=== PATIENT | female | born 1960 | race Caucasian/White ===

== ENCOUNTER → 2018-03-09 | Outpatient (CLI) | payer BC ==
[~2018-03-09] MED LIST: ALBU90OI; CLIM.025TP TOP; ESCI10 PO; IBUHYD PO; LEVSOD75 PO; NAPR550 PO; Nitrostat0.4 MG SL
== END | disposition home or self-care (01) ==
LOC: PLD 08:52 → LAB SHORT 08:52
DX: D22.5 Melanocytic nevi of trunk (principal)
CPT/HCPCS: 88305

== ENCOUNTER → 2018-05-12 | Outpatient (CLI) | payer BC ==
[2018-05-14 15:07] LABS: HPV 16 Negative (Negative); HPV 18 Negative (Negative); HPV OTHER HR TYPES Negative (Negative)
== END | disposition home or self-care (01) ==
LOC: LAB 14:08 → LAB SHORT 14:08
PROVIDERS: Obstetrics & Gynecology Gynecology
DX: Z12.72 Encounter for screening for malignant neoplasm of vagina (principal)
CPT/HCPCS: 87624; G0123

== ENCOUNTER → 2019-03-31 | Outpatient (CLI) | payer BC | END | disposition home or self-care (01) | LOC: PLD 11:42 → LAB SHORT 11:42 | DX: D48.5 Neoplasm of uncertain behavior of skin (principal) | CPT/HCPCS: 88305 ==

== ENCOUNTER → 2019-05-11 | Outpatient (CLI) | payer BC ==
[2019-05-11 18:24] LABS: Protein, Urine Random <5.0 mg/dL (0.0-11.9)
== END | disposition home or self-care (01) ==
LOC: LAB SHORT 15:08 → LAB 15:08
PROVIDERS: Internal Medicine
DX: R79.89 Other specified abnormal findings of blood chemistry (principal)
CPT/HCPCS: 82570; 84156

== ENCOUNTER 2020-07-24 07:03 | Observation (INO) | payer BC ==
[~2020-07-24] VITALS: Ht 160 cm; Wt 85.0 kg
[~2020-07-24 07:03] MED LIST changes: +ALBU90OI INH; +ALPR.5 PO; +BECL25NI INH; +CLIMARA1 EACH TOP; +DULO30 PO; +HYDR1TAB94 PO; +IBUP200 PO; +PREG75 PO
--- NOTE | 2020-07-24 07:31 | NUR ---
History, Chart, Medications and Allergies reviewed before start of procedure. Patient States Post-Procedure ride home has been arranged. Pre-Op teaching done. Pt verbalizes understanding.
--- NOTE | 2020-07-24 12:09 | NUR ---
PT ARRIVED TO UNIT FROM PACU. PLACED ON 1L OXYGEN WHILE RESTING. TITRATING OFF SHE AWAKES. LAP SITES CDI. ALLISON DRAIN PATENT AND DRAINING. PT CALLED SPOUSE TO LET HIM KNOW TO BRING BELONGINGS. PT TOLD SHE WAS GOING TO FOR AN ERCP. BED ASSIGNMENT GIVEN ESS 37. PROCESSING COBRA TRANSFER AT THIS TIME. PT TOLERATING SMALL SIPS OF WATER CURRENTLY. REPORTS PAIN TOLERABLE AND DENIES NAUSEA.
--- NOTE | 2020-07-24 13:08 | NUR ---
TRANSFER TRANSFER [facility]IA [facility] TO [place].
== END 2020-07-24 13:09 | disposition short-term general hospital (02) ==
LOC: ORSCMMR 07:03 → ORD 08:30 → SURS 10:15 → ORSCMMR 10:15 → SURS 11:00
PROVIDERS: ADMIT Surgery
DX: K80.65 Calculus of gallbladder and bile duct with chronic cholecystitis with obstruction (principal); E03.9 Hypothyroidism, unspecified; J45.909 Unspecified asthma, uncomplicated
CPT/HCPCS: 74300; 88304; A9270; C1729; J0694; J1100; J1610; J2250; J2370; J2405; J2704; J2710; J2765; J3010; J7120

== ENCOUNTER 2020-08-05 19:41 | Observation (INO) | payer BC ==
[~2020-08-05] VITALS: Ht 160 cm; Wt 88.3 kg
[2020-08-05 20:23] LABS: BASOPHILS ABSOLUTE AUTO 0.04 K/mm3 (0.00-0.23); BASOPHILS PERCENT AUTO 0 % (0-2); EOSINOPHILS PERCENT AUTO 2 % (0-6); Hematocrit 43.4 % (33.0-51.0); Hemoglobin 14.7 g/dL (11.5-16.0); IMMATURE GRAN ABSOLUTE AUTO 0.04 K/mm3 (0.00-0.10); IMMATURE GRAN PERCENT AUTO 0 % (0-1); LYMPHOCYTES ABSOLUTE AUTO 1.89 K/mm3 (0.84-5.20); LYMPHOCYTES PERCENT AUTO 14 % (21-46); MONOCYTES ABSOLUTE AUTO 0.93 K/mm3 (0.16-1.47); MONOCYTES PERCENT AUTO 7 % (4-13); Mean Corpuscular HGB 28.9 pg (26.0-34.0); Mean Corpuscular HGB Conc 33.9 g/dL (31.5-36.5); Mean Corpuscular Volume 85 fL (80-100); Mean Platelet Volume 10.8 fL (9.1-12.4); NEUTROPHILS ABSOLUTE AUTO 10.68 K/mm3 (1.96-9.15); NEUTROPHILS PERCENT AUTO 78 % (41-73); Platelet Count 289 K/mm3 (150-400); RDW Coefficient Variation 13.1 % (11.7-14.2); RDW Standard Deviation 40.9 fL (35.1-46.3); Red Blood Cell Count 5.09 M/mm3 (3.80-5.20); White Blood Cell Count 13.78 K/mm3 (4.00-11.30)
[2020-08-05 20:40] LABS: Alanine Aminotransfer (ALT/SGP 38 U/L (12-78); Albumin, Blood 3.5 g/dL (3.4-5.0); Albumin/Globulin Ratio 0.9 (0.8-1.8); Alk Phos 89 U/L (50-136); Anion Gap 5 mmol/L (6-16); Aspartate Aminotrans (AST/SGOT 26 U/L (12-37); Bilirubin, Total 0.4 mg/dL (0.1-1.0); Blood Urea Nitrogen 11 mg/dL (8-24); CO2, Blood 27 mmol/L (21-32); Calcium, Blood 8.8 mg/dL (8.5-10.1); Chloride, Blood 107 mmol/L (98-108); Creatinine, Blood 1.22 mg/dL (0.40-1.00); Globulin, Blood 3.8 g/dL (2.2-4.0); Glomerular Filtration Rate 47 (60-); Glucose, Blood 114 mg/dL (70-99); Potassium, Blood 4.5 mmol/L (3.5-5.5); Sodium, Blood 139 mmol/L (136-145); Total Protein, Blood 7.3 g/dL (6.4-8.2)
[2020-08-05] MEDS ORDERED: OXYC5 PO (21:02)
[2020-08-05 23:12] LABS: Source, Urine Clean Catch
[2020-08-05 23:14] LABS: Bilirubin, Urine Neg (Neg); Blood, Urine Neg (Neg); Glucose Qualitative, Urine Neg (Neg); Ketones, Urine Neg (Neg); Leukocyte Esterase, Urine Neg (Neg); Nitrite, Urine Neg (Neg); Protein, Urine Neg (Neg); Urobilinogen, Urine NORM (Normal)
[2020-08-05 23:19] LABS: Appearance, Urine Clear (Clear); Color, Urine Pale Yellow (P-Yellow)
[2020-08-06 00:06] LABS: Troponin I <0.015 ng/mL (0.000-0.040)
[2020-08-06] MEDS ORDERED: ESTRADIOL (TWI1 EAC2 TD (01:46)
[2020-08-06] MEDS ORDERED: LEVSOD75 PO (01:48)
[2020-08-06] MEDS ORDERED: LEVSOD112 PO (01:49)
--- NOTE | 2020-08-06 05:01 | NUR ---
SHIFT SUMMARY PT AOX4, VSS. PT AFEBRILE ON ARRIVAL FROM ED. GUARDS ABD, PAINFUL WITH MOVEMENT AND DEEP BREATHING. ZOSYN INFUSION COMPLETED PER ORDER, LR INFUSING AT 100 MLS/HR. DILAUDID 1 MG IV ADMIN FOR PAIN. SMALL AMOUNT OF PINK DRAINAGE IN ALLISON DRAIN PRESENT ON ARRIVAL FROM ED. PT STATED NOT HAVING TO DRAIN SINCE PRIOR AM. UP TO BATHROOM WITH STANDBY ASSIST.
--- NOTE | 2020-08-06 15:45 | NUR ---
Patient is lying in bed and alert. Patient's spouse, Thierry is bedside. Patient tells me about the events that led to her hospitalization, about her family and about her [employer]. I provide therapeutic listening and prayer. Patient and Thierry voice their appreciation for the prayer.
--- NOTE | 2020-08-06 17:14 | NUR ---
PT AOX4 AND COOPERATIVE OF CARE. DR AMIN REMOVED PT'S PINROSE DRAIN AND PT STATES HER INCREASED PAIN HAS IMPROVED. PT IS TREATED FOR PAIN PER EMAR. PT DID HAVE A FEVER OF 100.[address] AMIN WAS NOTIFIED AND ADDED MEDICATION TO EMAR. PT IS A STANDBY TO RESTROOM SHE NEEDS SOME MINIMAL SUPPORT. CALL LIGHT IS WITHIN REACH WILL CONTINUE TO MONITOR.
[2020-08-07 04:35] LABS: BASOPHILS ABSOLUTE AUTO 0.04 K/mm3 (0.00-0.23); BASOPHILS PERCENT AUTO 0 % (0-2); EOSINOPHILS ABSOLUTE AUTO 0.14 K/mm3 (0.00-0.68); EOSINOPHILS PERCENT AUTO 1 % (0-6); Hematocrit 42.1 % (33.0-51.0); Hemoglobin 13.7 g/dL (11.5-16.0); IMMATURE GRAN ABSOLUTE AUTO 0.06 K/mm3 (0.00-0.10); IMMATURE GRAN PERCENT AUTO 0 % (0-1); LYMPHOCYTES PERCENT AUTO 9 % (21-46); MONOCYTES ABSOLUTE AUTO 1.12 K/mm3 (0.16-1.47); MONOCYTES PERCENT AUTO 6 % (4-13); Mean Corpuscular HGB 28.5 pg (26.0-34.0); Mean Corpuscular HGB Conc 32.5 g/dL (31.5-36.5); Mean Corpuscular Volume 88 fL (80-100); Mean Platelet Volume 10.8 fL (9.1-12.4); NEUTROPHILS ABSOLUTE AUTO 14.84 K/mm3 (1.96-9.15); NEUTROPHILS PERCENT AUTO 83 % (41-73); Platelet Count 214 K/mm3 (150-400); RDW Coefficient Variation 13.3 % (11.7-14.2); RDW Standard Deviation 43.3 fL (35.1-46.3); Red Blood Cell Count 4.81 M/mm3 (3.80-5.20)
[2020-08-07 04:57] LABS: Albumin, Blood 2.7 g/dL (3.4-5.0); Albumin/Globulin Ratio 0.8 (0.8-1.8); Bilirubin, Total 0.7 mg/dL (0.1-1.0); Bun/Creatinine Ratio 6.6 (12.0-20.0); Calcium, Blood 8.1 mg/dL (8.5-10.1); Creatinine, Blood 1.37 mg/dL (0.40-1.00); Globulin, Blood 3.6 g/dL (2.2-4.0); Potassium, Blood 4.3 mmol/L (3.5-5.5); Total Protein, Blood 6.3 g/dL (6.4-8.2)
--- NOTE | 2020-08-07 05:37 | NUR ---
SHIFT SUMMARY AOX4. VSS. DENIES N/V OR SOB. PATRICK DRAIN REMOVED YESTERDAY 08/06/20. RUQ HAS TEGADERM & GAUZE PLACED WHERE DRAIN WAS LOCATED, C/D/I. REPORTS ABD PAIN WORSE c MOVEMENT. PAIN RATED 5/10 & 8/10 MEDICATED 2X c NORCO & STATES RELIEF. ACTIVE BT. ABD TENDER TO PALPATION & GAURDED WHEN IN PAIN/DISCOMFORT. TOLERATING CLEAR LIQUIDS, ASKING FOR DIET TO BE ADVANCED, WILL PASS INFO TO ONCOMING NURSE. CALL LIGHT IN REACH & PT ABLE TO MAKE NEEDS KNOWN. WCTM.
[2020-08-07] MEDS ORDERED: HYDR1TAB94 PO (08:41)
[2020-08-07] MEDS ORDERED: AMOCLA875 PO (09:10)
--- NOTE | 2020-08-07 10:18 | NUR ---
DISCHARGE DISCHARGE MEDICATIONS AND INSTRUCTIONS EXPLAINED TO PATIENT. PATIENT STATED UNDERSTANDING. SURGICAL FOLLOW UP SCHEDULED. HARD COPY PRESCRIPTIONS PROVIDED. IV REMOVED WITHOU ISSUE. BELONGINGS WITH PATIENT. PATIENT TRANSFERED TO PRIVATE VEHICLE VIA WHEELCHAIR.
== END 2020-08-07 09:55 | disposition home or self-care (01) ==
LOC: ER 19:41 → MEDS 19:42
PROVIDERS: Emergency Medicine; Physician Assistant; ADMIT Surgery
DX: G89.18 Other acute postprocedural pain (principal); R10.11 Right upper quadrant pain; R50.9 Fever, unspecified; E03.9 Hypothyroidism, unspecified; E66.9 Obesity, unspecified; Z68.32 Body mass index [BMI] 32.0-32.9, adult
CPT/HCPCS: 36415; 74177; 80053; 81003; 83605; 83690; 84484; 85025; 96361; 96372; 96374-59; 96375; 96376; 99284-25; A9270; G0378; J1170; J1650; J2405; J2543; J3010; J7030; J7120; Q9967

== ENCOUNTER → 2021-07-05 | Outpatient (CLI) | payer BC ==
[~2021-07-05] MED LIST changes: +AMOCLA875 PO; +ESTRADIOL (TWI1 EAC2 TD; +LEVSOD112 PO; +OXYC5 PO
[2021-07-05 12:37] LABS: Microalb/Creat Ratio UR, Rand Unable to Calculate mg/g (0.000-30.000); Microalbumin, Random Urine <5.000 mg/L (0.000-20.000)
== END | disposition home or self-care (01) ==
LOC: LAB 10:43 → LAB SHORT 10:43
PROVIDERS: Internal Medicine
DX: E78.5 Hyperlipidemia, unspecified (principal); E03.9 Hypothyroidism, unspecified; N18.31 Chronic kidney disease, stage 3a; Z79.899 Other long term (current) drug therapy
CPT/HCPCS: 82043; 82570

== ENCOUNTER → 2021-07-09 | Outpatient (CLI) | payer BC ==
[2021-07-09 13:21] LABS: Appearance, Urine Hazy (Clear); Bilirubin, Urine Neg (Neg); Blood, Urine Neg (Neg); Color, Urine Yellow (P-Yellow); Glucose Qualitative, Urine Neg (Neg); Ketones, Urine Neg (Neg); Leukocyte Esterase, Urine Neg (Neg); Nitrite, Urine Neg (Neg); Protein, Urine Neg (Neg); Urobilinogen, Urine NORM (Normal)
[2021-07-09 13:56] LABS: Yeast/Fungi Urine Rare /hpf
[2021-07-09 13:57] LABS: Bacteria Many /hpf; Red Blood Cells, Urine 0-2 /hpf (0-2); Squamous Epithelial Cells Mod /hpf (Few)
[2021-07-09 13:59] LABS: Transitional Epithelial Cells Rare /hpf (0-Rare)
== END | disposition home or self-care (01) ==
LOC: LAB SHORT 11:54
PROVIDERS: Internal Medicine
DX: N39.0 Urinary tract infection, site not specified (principal); R35.0 Frequency of micturition
CPT/HCPCS: 81001

== ENCOUNTER → 2024-09-06 | Outpatient (CLI) | payer OTHER | LOC: LAB SHORT 08:29 → LAB 08:29 | DX: L57.0 Actinic keratosis (principal); J34.89 Other specified disorders of nose and nasal sinuses | CPT/HCPCS: 88305; 88312 ==